=== PATIENT | female | born 1990 | race Caucasian/White ===

== ENCOUNTER 2017-06-23 15:40 | Emergency (ER) | payer OTHER ==
[2017-06-23 15:43] VITALS: BMI 42.5
[2017-06-23 15:46] VITALS: TEMP 97.9
--- NOTE | 2017-06-23 16:08 | ED PDOC ---
Arrival/HPI - General Chief Complaint: Lower Extremity Problem/Injury Time Seen by Provider: 06/23/17 16:04 Historian: Patient - History of Present Illness Narrative History of Present Illness (Text): 06/23/17 16:04 26 y/o female, no significant pmh, nkda, c/o lt. lower leg pain x 2 days with no fall or trauma. Aching pain, aggravated by walking, no skin discoloration, no numbness or tingling, no palpitation, no rash, no other medical or psychological complaints. Past Medical History - Provider Review Nursing Documentation Reviewed: Yes - Infectious Disease Hx of Infectious Diseases: None - Tetanus Immunization Tetanus Immunization: Unknown - Past Medical History Past Medical History: No Previous - Psychiatric Hx Depression: No Hx Emotional Abuse: No Hx Physical Abuse: No Hx Substance Use: No - Surgical History Hx Section: Yes - Anesthesia Hx Anesthesia: Yes Hx Anesthesia Reactions: No - Suicidal Assessment Feels Threatened In Home Enviroment: No Family/Social History - Physician Review Nursing Documentation Reviewed: Yes Family/Social History: Unknown Family HX Smoking Status: Never Smoked Hx Alcohol Use: No Hx Substance Use: No Hx Substance Use Treatment: No Allergies/Home Meds Allergies/Adverse Reactions: Allergies No Known Allergies Allergy (Verified 06/23/17 15:42) Review of Systems - Review of Systems Constitutional: absent: Fatigue Eyes: absent: Vision Changes ENT: absent: Hearing Changes Respiratory: absent: SOB, Cough Cardiovascular: absent: Chest Pain Musculoskeletal: Arthralgias, Myalgias. absent: Back Pain, Neck Pain, Joint Swelling Skin: absent: Rash, Pruritis Physical Exam Vital Signs Reviewed: Yes Vital Signs Temp Pulse Resp BP Pulse Ox 06/23/17 18:03 89 17 108/80 98 06/23/17 15:45 97.9 F 93 H 18 106/77 97 Temperature: Afebrile Blood Pressure: Normal Pulse: Regular Respiratory Rate: Normal Appearance: Positive for: Well-Appearing, Non-Toxic, Comfortable Pain Distress: Mild Mental Status: Positive for: Alert and Oriented X 3 - Systems Exam Head: Present: Atraumatic, Normocephalic Pupils: Present: PERRL Extroacular Muscles: Present: EOMI Conjunctiva: Present: Normal Mouth: Present: Moist Mucous Membranes Neck: Present: Normal Range of Motion Respiratory/Chest: Present: Clear to Auscultation, Good Air Exchange. No: Respiratory Distress, Accessory Muscle Use Cardiovascular: Present: Regular Rate and Rhythm, Normal S1, S2, Other (no pedal edema). No: Murmurs Abdomen: Present: Normal Bowel Sounds. No: Tenderness, Distention, Peritoneal Signs Back: Present: Normal Inspection Upper Extremity: Present: Normal Inspection. No: Cyanosis, Edema Lower Extremity: Present: Normal Inspection, Other (LLE: mild +ttp on the lateral malleolus and calf region, skin intact, no laceration or abrasion, no skin discoloration, FROM without limitation, sensation intact, motor 5/5, +DPPT pulses, capillary refill< 2 seconds, neurovascular intact. ). No: Edema Neurological: Present: GCS=15, Speech Normal, Motor Func Grossly Intact, Gait Normal, Memory Normal Skin: Present: Warm, Dry, Normal Color. No: Rashes Psychiatric: Present: Alert, Oriented x 3, Normal Insight, Normal Concentration Medical Decision Making ED Course and Treatment: 06/23/17 16:10 -LLE venuous doppler, lt. ankle xray -motrin -kera wrap -Discharge home with naproxen, kera wrap, crutches, elevation, follow up with your own pmd and orthopedic within 2 days, return to the ER for any new or worsening signs or symptoms. 06/23/17 17:54 -LLE Venuous doppler: as per preliminary, no acute DVT -Lt. ankle xray: no fracture or dislocation - RAD Interpretation Radiology Orders: 06/23/17 16:07 ANKLE LEFT 3 VIEWS ROUTINE [RAD] Stat DUPLEX LOWER EXTRM VEIN LEFT [US] Stat LLE Venuous doppler: as per preliminary, no acute DVT Lt. ankle xray: no acute fracture/dislocation Life Cycle Assessment Analyst: Radiologist - Medication Orders Current Medication Orders: Discontinued Medications Ibuprofen (Motrin Tab) 600 mg PO STAT STA Stop: 06/23/17 16:08 Last Admin: 06/23/17 16:21 Dose: 600 mg - PA / RESERVOIR ENGINEERING CONSULTANT / Resident Statement MD/DO has reviewed & agrees with the documentation as recorded. Disposition/Present on Arrival - Present on Arrival Any Indicators Present on Arrival: No History of DVT/PE: No History of Uncontrolled Diabetes: No Urinary Catheter: No History of Decub. Ulcer: No History Surgical Site Infection Following: None - Disposition Have Diagnosis and Disposition been Completed?: Yes Diagnosis: Ankle pain, Leg pain Disposition: HOME/ ROUTINE Disposition Time: 16:11 Patient Plan: Discharge Condition: GOOD Additional Instructions: -Discharge home with naproxen, kera wrap, crutches, elevation, follow up with your own pmd and orthopedic within 2 days, return to the ER for any new or worsening signs or symptoms. Prescriptions: Naproxen 500 mg PO BID #20 tab Referrals: Rickie Christianson MD [Primary Care Provider] - Follow up with primary Yoni Kauffman MD [Staff Provider] - Follow up with primary Forms: [employer] (Greenlandic), WORK NOTE
[2017-06-23 18:04] VITALS: BP 108/80; PULSE 89; RESP 17; O2SAT 98
--- NOTE | 2017-06-23 18:57 | RAD ---
PROCEDURE: Left Ankle Radiographs. HISTORY: Left ankle pain 2 days duration. No antecedent history of trauma provided. COMPARISON: None FINDINGS: BONES: Normal. No fracture. JOINTS: Normal. No osteoarthritis. Ankle mortise maintained. Talar dome intact SOFT TISSUES: Normal. OTHER FINDINGS: None. IMPRESSION: No acute findings related to/accounting for the clinical presentation. Concordant results with the preliminary interpretation rendered by the emergency department physician procedure.
--- NOTE | 2017-06-23 19:37 | US ---
PROCEDURE: Left lower extremity venous US HISTORY: Leg pain and swelling. Evaluate for DVT. PHYSICIAN(S): Clint Fontenot MD. TECHNIQUE: Duplex sonography and color-flow Doppler with graded compression were used to evaluate the deep venous system of the left lower extremity. FINDINGS: The visualized deep venous system of the left lower extremity is sonographically normal and compressible. Normal wave forms and augmentation are seen. There is no sonographic evidence for deep venous thrombosis in the visualized segments of the left lower extremity. IMPRESSION: 1. No sonographic evidence for deep venous thrombosis in the visualized segments of the left lower extremity.
== END 2017-06-23 18:06 | disposition home or self-care (01) ==
LOC: ED 15:40
DX: M25.572 Pain in left ankle and joints of left foot (principal); M79.662 Pain in left lower leg